=== PATIENT | male | born 1975 | race Caucasian/White ===

== ENCOUNTER 2025-02-22 07:36 | Emergency (ER) | payer OTHER, SELFPAY ==
[2025-02-22 07:38] VITALS: BP 156/95
--- NOTE | 2025-02-22 10:09 | ED.GENMED ---
History of Present Illness
General
Chief Complaint: Nose Bleed
Source: patient
Exam Limitations: none
Time Seen by Provider: 02/22/25 08:07
History of Present Illness
History of Present Illness:
49-year-old male presents complaining of right sided nosebleed that started this morning. He was unable to get it stop bleeding at home. No anticoagulants. No known injury. No other complaints at this time
Phy Exam
Physical Exam
Physical Exam:
General: Well-appearing male no acute distress
HEENT normocephalic there is a site of bleeding noted in the right nasal cavity midway up the anterior portion medially.
Course
Vital Signs
Initial and Last Documented VS:
Initial Vital Signs
Temp Pulse Resp BP Pulse Ox
97.1 F 69 18 156/95 99
02/22/25 07:38 02/22/25 07:38 02/22/25 07:38 02/22/25 07:38 02/22/25 07:38
Last Documented Vital Signs
Temp Pulse Resp BP Pulse Ox
97.1 F 69 18 156/95 99
02/22/25 07:38 02/22/25 07:38 02/22/25 07:38 02/22/25 07:38 02/22/25 07:38
MDM/Problems Addressed
Differential Diagnosis Includes:
Acute right anterior epistaxis. Initially the patient's nose was packed with cotton soaked with lidocaine and epinephrine. An attempt was made to cauterization following this using silver nitrate however the rate of bleeding was too brisk.
Subsequently a piece of Surgicel gauze was placed in the nose and a nasal clamp was applied and allowed to sit for 20 minutes. The nasal clamp was removed and there was no further bleeding. The patient was allowed to sit in the room for another
hour. No further bleeding nose is reinspected. Stable for discharge
*Critical Care Note
Total Time (30-74mins, 75-104mins- exclusive of procedures): Not Applicable
ED Attending Note
-
Portions of this chart may have been created with voice recognition software.� Occasional wrong word or��sound alike� substitutions may have occurred due to the inherent limitations of voice recognition software.
Discharge Plan
Departure
Patient Disposition: Home (Routine Discharge)
Date of Disposition: 02/22/25
Time of Disposition: 10:12
Patient with high blood pressure during this ER visit?: No
Discharge Problem:
Acute anterior epistaxis
Instructions: Nosebleeds (DC)
Referrals:
Vamsi Cameron MD [Active] -
UNKNOWN - PT DOES,NOT KNOW [Family Provider] -
Activity Restrictions/Additional Instructions:
Return here if needed otherwise follow-up with ENT
Interventions
Interventions:
*Risk Screen - Suicide Last Done: 02/22/25 07:38
*General Assessment Last Done: 02/22/25 07:38
*Neglect/Abuse Screening Last Done: 02/22/25 07:38
*ED COVID-19 Vaccine History Last Done: 02/22/25 07:38
Discharge Date and Time
Print Language: DUTCH
[2025-02-22 11:01] VITALS: BP 135/68
== END 2025-02-22 11:05 | disposition home or self-care (01) ==
LOC: EMR 07:36
PROVIDERS: EMERGENCY PHYSICIAN Emergency Medicine
DX: R04.0 Epistaxis (principal)
CPT/HCPCS: 99282; 30901